=== PATIENT | female | born 1955 | race African-American/Black ===

== ENCOUNTER 2025-04-09 07:41 | Inpatient (IN) | payer MEDICARE, MEDICAID ==
[~2025-04-09] VITALS: Ht 152.4 cm; Wt 64.6 kg
[2025-04-09 07:47] VITALS: O2SAT 98
[2025-04-09 09:04] LABS: BASOPHILS % 0.5 % (0.0-2.0); EOSINOPHILS % 0.7 % (0.0-5.0); HEMATOCRIT. 36.1 % (36.0-48.0); HEMOGLOBIN. 11.8 g/dL (12.0-16.0); LYMPHOCYTES % 33.2 % (20.0-50.0); MEAN PLATELET VOLUME 8.0 fl (7.4-10.4); MONOCYTES % 4.9 % (2.0-8.0); NEUTROPHILS % 60.7 % (40.0-76.0); PLATELET 228 x1000/uL (130-400); RED BLOOD CELL COUNT 4.39 mill/uL (4.2-5.4); RED CELL DISTRIBUTION WIDTH 14.2 % (11.6-14.6)
[2025-04-09 09:18] LABS: CREATININE 0.9 mg/dL (0.6-1.0); UREA NITROGEN BLOOD 30 mg/dL (9-23)
[2025-04-09 09:19] LABS: TROPONIN I HIGH SENSITIVITY 5 ng/L (3.0-34)
[2025-04-09 11:53] VITALS: BP 175/86; PULSE 77; RESP 18; TEMP 36.1956
[2025-04-09 11:57] VITALS: BP 175/86; PULSE 77; RESP 19; TEMP 36.3; O2SAT 98
[2025-04-09] MEDS ORDERED: CLONIDINE 0.1MG TABLET PO PRN (14:15)
[2025-04-09] MEDS ORDERED: IPRATROPIUM/ALBUTEROL 0.5-3(2.5)MG/3ML NEB HHN PRN (14:15)
[2025-04-09] MEDS ORDERED: ONDANSETRON HCL 4MG/2ML INJ IV PRN (14:15)
[2025-04-09] MEDS ORDERED: ACETAMINOPHEN 325MG TABLET PO PRN (14:15)
[2025-04-09] MEDS ORDERED: DOCUSATE SODIUM 100MG CAPSULE PO PRN (14:15)
[2025-04-09] MEDS: ACETAMINOPHEN 325MG TABLET PO PRN (15:03)
[2025-04-09 16:04] LABS: CLARITY URINE CLEAR (CLEAR); COLOR URINE YELLOW (YELLOW); GLUCOSE URINE TRACE (NEGATIVE); KETONES URINE NEGATIVE (NEGATIVE); LEUKOCYTE ESTERASE URINE NEGATIVE (NEGATIVE); NITRITE URINE NEGATIVE (NEGATIVE); OCCULT BLOOD URINE NEGATIVE (NEGATIVE); PH URINE 7.0 (4.5-8.0); PROTEIN URINE NEGATIVE (NEGATIVE); SPECIFIC GRAVITY URINE 1.011 (1.005-1.030); UROBILINOGEN URINE 0.2 E.U./dL (0.2-1.0)
[2025-04-09 16:13] LABS: *AMPHETAMINES SCREEN URINE NEGATIVE (NEGATIVE); *BARBITURATES SCREEN URINE NEGATIVE (NEGATIVE); *BENZODIAZEPINES SCREEN URINE NEGATIVE (NEGATIVE); *COCAINE SCREEN URINE PRESUMPTIVE POSITIVE (NEGATIVE); METHADONE URINE SCREEN NEGATIVE (NEGATIVE); OPIATES URINE SCREEN NEGATIVE (NEGATIVE); PHENCYCLIDINE URINE SCREEN NEGATIVE (NEGATIVE)
[2025-04-09 16:14] LABS: CANNABINOID URINE SCREEN NEGATIVE (NEGATIVE); ECSTASY MDMA SCREEN URINE NEGATIVE (NEGATIVE)
[2025-04-09 16:20] LABS: BACTERIA URINE NONE SEEN; RBC URINE NONE SEEN /hpf (0-2); SQUAMOUS EPITHELIAL CELL URINE NONE SEEN /lpf (RARE/1+); WBC URINE NONE SEEN /hpf (0-2)
[2025-04-09 16:22] VITALS: BP 140/83; PULSE 79; RESP 20; TEMP 36.3; O2SAT 100
[2025-04-09 20:00] VITALS: BP 143/74; PULSE 75; RESP 19; TEMP 36.9; O2SAT 97
[2025-04-09 20:04] LABS: CREATINE KINASE MB FRACTION 2.6 ng/mL (0.5-3.6)
[2025-04-09 20:05] LABS: TROPONIN I HIGH SENSITIVITY 8.0 ng/L (3.0-34)
[2025-04-09] MEDS: HYDRALAZINE HCL 50MG TABLET PO SCH (21:10)
[2025-04-09] MEDS: ENOXAPARIN 30MG/0.3ML SYR SUBCUT SCH (21:10)
[2025-04-09] MEDS ORDERED: DEXTROSE 50% WATER 50ML SYRINGE IV PRN (22:15)
[2025-04-09] MEDS: INSULIN LISPRO 100 UNITS/ML SUBCUT NR (22:39)
[2025-04-10] VITALS: BP 128/63; PULSE 83; RESP 19; TEMP 36.6; O2SAT 100
[2025-04-10 04:05] VITALS: BP 126/67; PULSE 81; RESP 19; TEMP 36.8; O2SAT 98
[2025-04-10] MEDS: BLOOD SUGAR DIAGNOSTIC STRIP TEST SCH (06:52)
[2025-04-10 08:00] VITALS: BP 126/64; PULSE 85; RESP 20; TEMP 36.2; O2SAT 99
[2025-04-10] MEDS: INSULIN LISPRO 100 UNITS/ML SUBCUT SCH (08:10)
[2025-04-10] MEDS: FAMOTIDINE 20MG/2ML VIAL IV SCH (08:22)
[2025-04-10 11:00] LABS: BASOPHILS % 0.6 % (0.0-2.0); EOSINOPHILS % 1.6 % (0.0-5.0); HEMATOCRIT. 33.5 % (36.0-48.0); HEMOGLOBIN. 11.0 g/dL (12.0-16.0); LYMPHOCYTES % 53.8 % (20.0-50.0); MEAN PLATELET VOLUME 8.3 fl (7.4-10.4); MONOCYTES % 7.2 % (2.0-8.0); NEUTROPHILS % 36.8 % (40.0-76.0); PLATELET 249 x1000/uL (130-400); RED BLOOD CELL COUNT 4.11 mill/uL (4.2-5.4); RED CELL DISTRIBUTION WIDTH 14.0 % (11.6-14.6)
[2025-04-10 11:09] LABS: INR 1.0
[2025-04-10 11:23] LABS: CREATININE 1.0 mg/dL (0.6-1.0)
[2025-04-10 11:24] LABS: TRIGLYCERIDE 109 mg/dL (0-150)
[2025-04-10 11:25] LABS: ASPARTATE AMINOTRANSFERASE 11 IU/L (<34); LDL CHOLESTEROL 100 mg/dL (5-100); UREA NITROGEN BLOOD 29 mg/dL (9-23)
[2025-04-10 11:26] LABS: BILIRUBIN DIRECT < 0.1 mg/dL (<=3.0); PHOSPHORUS 3.3 mg/dL (2.5-4.9); PROTEIN TOTAL 6.3 g/dL (6.0-8.3)
[2025-04-10 11:27] LABS: BILIRUBIN TOTAL 0.2 mg/dL (0.1-1.0)
[2025-04-10 12:00] VITALS: BP 120/58; PULSE 72; RESP 20; TEMP 36.3; O2SAT 99
[2025-04-10] MEDS: GABAPENTIN 100MG CAPSULE PO SCH (13:30)
[2025-04-10 16:00] VITALS: BP 102/44; PULSE 76; RESP 20; TEMP 36.2; O2SAT 100
[2025-04-10 20:00] VITALS: BP 136/82; PULSE 86; RESP 19; TEMP 36.3; O2SAT 98
[2025-04-11 03:48] VITALS: BP 108/62; PULSE 95; RESP 20; TEMP 36.4; O2SAT 99
[2025-04-11 08:00] VITALS: BP 126/80; PULSE 88; RESP 18; TEMP 36.3; O2SAT 99
[2025-04-11] MEDS: METFORMIN HCL 500MG TABLET PO SCH (08:24)
[2025-04-11] MEDS ORDERED: GABA-529 PO (10:09)
[2025-04-11] MEDS ORDERED: INSU100I28 SQ (10:09)
[2025-04-11] MEDS ORDERED: METF-414 MT (10:09)
[2025-04-11 12:00] VITALS: BP 123/65; PULSE 84; RESP 18; TEMP 36.4; O2SAT 99
[2025-04-11 12:20] VITALS: BP 123/65; PULSE 84; RESP 20; TEMP 97.5
== END 2025-04-11 14:25 | disposition home or self-care (01) | DRG 637 ==
LOC: ER 07:41 → 7WST 09:37 → ENRESERV 10:25
PROVIDERS: ADMIT Internal Medicine; ATTEND Internal Medicine
DX: E11.649 Type 2 diabetes mellitus with hypoglycemia without coma (principal); G93.41 Metabolic encephalopathy; Z59.00 Homelessness unspecified; R07.2 Precordial pain; F19.10 Other psychoactive substance abuse, uncomplicated; I10 Essential (primary) hypertension; Z79.899 Other long term (current) drug therapy; Z71.51 Drug abuse counseling and surveillance of drug abuser
CPT/HCPCS: 36415; 71045; 80048; 80061; 80076; 80305; 81003; 82550; 82553; 82962; 83036; 83735; 83880; 84100; 84484; 85025; 93005; 99285; J1308; J1650; J1815

== ENCOUNTER 2025-07-30 14:44 | Emergency (ER) | payer MEDICARE, MEDICAID ==
[~2025-07-30] VITALS: Ht 160 cm; Wt 60.0 kg
[~2025-07-30 14:44] MED LIST: GABA-529 PO; INSU100I28 SQ; METF-414 MT
[2025-07-30 15:03] VITALS: O2SAT 98
[2025-07-30] MEDS ORDERED: ACET-2708 MT (19:09)
[2025-07-30] MEDS ORDERED: LIDO-53 TP (19:09)
[2025-07-30] MEDS: KETOROLAC 30MG/ML VIAL IM ONE (19:21)
[2025-07-30 19:35] VITALS: BP 148/85; PULSE 79; RESP 18; TEMP 36.9; O2SAT 99
[2025-07-30] MEDS: LIDOCAINE 5% PATCH TOP SCH (19:41)
== END 2025-07-30 19:50 | disposition home or self-care (01) ==
LOC: ER 15:39
DX: M25.512 Pain in left shoulder (principal); E11.9 Type 2 diabetes mellitus without complications; I10 Essential (primary) hypertension; R51.9 Headache, unspecified; Z79.4 Long term (current) use of insulin; Z79.84 Long term (current) use of oral hypoglycemic drugs
CPT/HCPCS: 99285; 70450; 82962; 73030; 72125; 71250; 74176; 96372; J1885